=== PATIENT | female | born 1965 | race Caucasian/White ===

== ENCOUNTER 2023-10-18 10:18 | Outpatient (AMB) | payer OTHER, SELFPAY ==
--- NOTE | 2023-10-18 10:33 | HO.SPINEOV ---
Intake Visit Reasons: Pulling/Pain in neck and Lt. arm Intake Note: Mrs. Dumont is here today c/o pulling/pain in neck and Lt. arem. 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 HPI: This 58-year-old female underwent an anterior diskectomy and fusion C4-5 7 years ago for spinal cord compression. She was doing very well up until approximately 1 year ago when she was doing yd work and developed neck pain. She then went on her routine on the treadmill and developed an acute pain radiating from the neck to the left shoulder. Since then she suffering from this pain which is not improving. In addition she reports clumsiness of her hands and a return of the left leg weakness. She also developed vertigo in sum shape or form since January 2023. She has modified her lifestyle in attempt to control the symptoms. She can no longer go to the gym and has gained weight due to the inactivity. She does still work. Past medical history: Hysterectomy, colorectal fistula, cholecystectomy and anterior cervical fusion. Medications: None Allergies: Sulfa Social history: Nonsmoker Physical Exam: Pleasant female. There is pain on palpation of the left side of her neck. Fine motor movement of the hands are disturbed. No objective weakness or sensory deficits. No pathological reflexes Radiological Studies: No new imaging is available for review Impression/Plan: This 58-year-old female has a history of spinal cord compression and developed acute symptoms approximately 1 year ago that have not been improving. I am worried that she developed adjacent degenerative disc disease with possible spinal cord compression based on her symptomatology. I will order an MRI of the cervical spine and the results of the scan will determine further management. I told the patient not to start physical therapy until we have excluded spinal cord compression. Thank you for allowing me to participate in your patients care. total time spent was 45 minutes in counseling ,coordination of plan, personal review of imaging, surgical decision making and subsequent plan Chetan France MD, PhD Spine Fellowship Trained Neurosurgeon Director, [facility] Orders: Orders MR cervical spine wo con Today G95.9 - Disease of spinal cord, unspecified Coding Level of Care Code New Pt Level 4 (85576) Diagnoses Cervical myelopathy G95.9 Status post cervical spinal fusion Z98.1
== END 2023-10-18 10:47 | disposition home or self-care (01) ==
PROVIDERS: Referring Provider Registered Nurse; Visit Provider Neurological Surgery
DX: G95.9 Disease of spinal cord, unspecified (principal); Z98.1 Arthrodesis status
CPT/HCPCS: 99204

== ENCOUNTER → 2023-10-18 10:18 | Outpatient (BNVA) | payer OTHER, SELFPAY | PROVIDERS: Visit Provider Neurological Surgery ==

== ENCOUNTER 2023-11-02 08:27 | Outpatient (REF) | payer OTHER, SELFPAY ==
--- NOTE | ~2023-11-02 | MR_ITS ---
EXAMINATION: MR CERVICAL SPINE WITHOUT CONTRAST CLINICAL INFORMATION: Spinal cord abnormality. Neck pain. COMPARISON: None available. TECHNIQUE: MRI of the cervical spine was obtained using routine sequences without contrast. FINDINGS: Interbody fusion of C4-C5. Straightening of the normal cervical lordosis. Minimal degenerative anterolisthesis of C3 on C4. Mild degenerative retrolisthesis of C5 on C6. Moderate to advanced degenerative disc disease at C3-C4 and from C5-C7. Associated mixed Modic type discogenic endplate changes including Modic type I discogenic edema from C5-C7. Mild marrow edema within the C5-C6 posterior elements consistent with degenerative stress reaction. No additional suspicious marrow edema. The vertebral body heights are well maintained. Minimal T2 hyperintensity in the right lateral cord at the level of C5-C6. No additional spinal cord signal abnormalities. Limited evaluation of the soft tissues of the neck without demonstrated abnormalities. The flow voids of the major cervical vessels are maintained. Normal appearance of the cervicomedullary junction and visualized posterior fossa. SPINAL LEVELS: C2-C3: Minimal disc-osteophyte complex. There is no uncovertebral joint arthropathy. There is moderate left and mild right facet joint arthropathy. There is no neural foraminal stenosis. There is no spinal canal stenosis. C3-C4: Moderate disc-osteophyte complex. There is moderate right and mild left uncovertebral joint arthropathy. There is moderate bilateral facet joint arthropathy. There is mild bilateral neural foraminal stenosis. There is no spinal canal stenosis. C4-C5: Normal annular contour. There is moderate left and mild right uncovertebral joint arthropathy. There is moderate bilateral facet joint arthropathy. There is mild left and no right neural foraminal stenosis. There is no spinal canal stenosis. C5-C6: Moderate disc-osteophyte complex. There is moderate left and mild right uncovertebral joint arthropathy. There is moderate bilateral facet joint arthropathy. There is left worse than right neural foraminal stenosis. There is mild spinal canal stenosis. C6-C7: Moderate disc-osteophyte complex. There is moderate right and mild left uncovertebral joint arthropathy. There is moderate left and mild right facet joint arthropathy. There is mild to moderate bilateral neural foraminal stenosis. There is no spinal canal stenosis. C7-T1: Normal annular contour. There is no uncovertebral joint arthropathy. There is mild bilateral facet joint arthropathy. There is no neural foraminal stenosis. There is no spinal canal stenosis. MR/MR cervical spine wo con IMPRESSION: Interbody fusion of C4-C5. Moderate multilevel degenerative spondyloarthropathy of the cervical spine as described in detail above. Most notably, there is mild spinal canal stenosis at C5-C6. Moderate neural foraminal stenoses at C5-C6 and C6-C7. Mild myelomalacia within the right lateral cord at the level of C5-C6. Electronically signed by: Wesley Campos DO 11/02/2023 11:55 AM EDT
== END 2023-11-02 08:28 | disposition home or self-care (01) ==
LOC: HO.MRI 08:27
PROVIDERS: Visit Provider Neurological Surgery
DX: G95.9 Disease of spinal cord, unspecified (principal)
CPT/HCPCS: 72141